=== PATIENT | female | born 1945 | race Caucasian/White ===

== ENCOUNTER 2021-03-10 04:46 | Emergency (ER) | payer MEDICARE, SELFPAY ==
--- NOTE | 2021-03-10 | ECG_ITS ---
Test Reason : CHEST PAIN Blood Pressure : / mmHG Vent. Rate : 069 BPM Atrial Rate : 069 BPM P-R Int : 178 ms QRS Dur : 080 ms QT Int : 408 ms P-R-T Axes : 024 -07 069 degrees QTc Int : 437 ms Normal sinus rhythm Inferior infarct , age undetermined Abnormal ECG No previous ECGs available Referred By: Farrah Vences Electronically Signed By:DIANE THOMPSON MD
--- NOTE | ~2021-03-10 | CT_ITS ---
EXAMINATION: CT ANGIOGRAM OF THE CHEST WITH AND WITHOUT CONTRAST (CT PULMONARY ANGIOGRAM FOR PE) CLINICAL INFORMATION: Reason for Exam dyspnea COMPARISON: None TECHNIQUE: Prior to contrast administration, noncontrast localization images were obtained. Subsequently, multidetector volumetric imaging was performed from the thoracic inlet to below the diaphragms following the administration of 80 mL Omnipaque 350 intravenous contrast. No contrast reaction reported Sagittal, coronal, and MIP oblique sagittal reformatted images were obtained on the CT workstation, uploaded to PACS, and reviewed. This CT examination was performed using dose optimization techniques as appropriate, variously including the following: *Automated exposure control *Adjustment of mA and/or kV according to patient size (this includes techniques or standardized protocols for targeted exams where dose is matched to indication/reason for exam; i.e. extremities or head) *Use of iterative reconstruction technique Total exam dose-length product 303 mGy-cm FINDINGS: QUALITY OF STUDY/CONTRAST BOLUS: Satisfactory. PULMONARY ARTERIES: No central or segmental pulmonary emboli. THORACIC AORTA: No aneurysm or dissection. LUNG: The lungs are well-expanded without acute pneumonic consolidation. There is minimal nonspecific groundglass attenuation in the dependent segments of both upper lobe posterior segments and both lower lobes and lower lobe. No pulmonary nodule or mass seen. Minimal atelectatic changes are seen in the right lower lobe. PLEURA: No pleural effusion or pneumothorax. MEDIASTINUM: The thyroid lobes are symmetric and normal. The central trachea and the bronchi widely patent. Heart size is normal caliber. No evidence of septal bowing or right heart strain. CHEST WALL/AXILLA: Small shotty nonspecific lymph nodes seen in the lateral thoracic space. No abnormal lymph nodes seen in the axilla. The chest wall appears unremarkable. OSSEOUS STRUCTURES: There is mild ventral spondylosis dorsal spine. No lytic or sclerotic process seen. UPPER ABDOMEN: Julys liver, spleen appears unremarkable. There is dependent radiopaque calculi in the gallbladder. No reflux of contrast into the hepatic veins to suggest elevated right heart pressures. CT/CT angio chest PE protocol IMPRESSION: No evidence of PE. No evidence of aortic dissection. No consolidation or mass. Minimal platelike atelectasis in right lower lobe. Nonspecific dependent atelectasis in this posterior segments of both upper and lower lobes. VTE: negative
--- NOTE | ~2021-03-10 | XR_ITS ---
EXAMINATION: XR CHEST CLINICAL INFORMATION: Shortness of breath COMPARISON: None TECHNIQUE: AP portable semiupright chest FINDINGS: Lung volumes are symmetric. No focal consolidation is seen. No evidence of pneumothorax, pleural effusion, or pulmonary edema. The cardiomediastinal contour is unremarkable. Partially visualized fusion hardware in the cervical spine. Degenerative changes are noted in the thoracic spine. XR/XR chest 1V IMPRESSION: No acute cardiopulmonary findings.
[2021-03-10 06:03] LABS: MANUAL DIFF FLAG NO
[2021-03-10 06:04] LABS: VBG Base Excess 6.4 mmol/L; VBG HCO3 31 mmol/L (22-26); VBG pCO2 44 mmHg; VBG pH 7.45 (7.32-7.43); VBG pO2 112 mmHg
[2021-03-10 06:18] LABS: Basophils Percent Auto 0.6 % (0-2); Eosinophils Absolute Auto 0.1 X10*3/uL (0.0-0.4); Eosinophils Percent Auto 2.1 % (0-4); Hematocrit 37.3 % (37-47); Hemoglobin 12.8 g/dl (12.0-16.0); Imm Gran Abs Auto 0.01 X10*3/uL (0.00-0.03); Imm Gran Pct Auto 0.2 % (0.0-0.4); Lymphocytes Absolute Auto 2.1 X10*3/uL (1.2-4.9); Lymphocytes Percent Auto 44.4 % (20-40); Mean Corpuscular HGB Conc 34.3 g/dl (31.0-35.0); Mean Corpuscular Volume 96.1 fL (80-98); Mean Platelet Volume 9.5 fL (9.4-12.3); Monocytes Absolute Auto 0.5 X10*3/uL (0.1-1.2); Monocytes Percent Auto 9.5 % (2-11); Neutrophils Absolute Auto 2.1 X10*3/uL (2.0-8.3); Neutrophils Percent Auto 43.2 % (45-73); Platelet Count 216 X10*3/uL (160-400); Red Blood Count 3.88 X10*6/uL (4.20-5.50); Red Cell Distribution Width 11.9 % (11.0-16.0); White Blood Count 4.8 X10*3/uL (4.8-10.8)
[2021-03-10 06:27] LABS: Lactic Acid 1.8 mmol/L (0.5-2.0)
[2021-03-10 06:32] LABS: Alanine Aminotransferase 15 U/L (0-31); Albumin Level 4.1 g/dL (3.5-5.0); Alkaline Phosphatase 69 U/L (39-117); Anion Gap 12 (12-20); Aspartate Amino Transferase 20 U/L (5-31); Bilirubin Total 0.2 mg/dL (0.0-1.0); Blood Urea Nitrogen 19 mg/dL (9-16); Carbon Dioxide 29 mmol/L (22-29); Chloride 103 mmol/L (96-108); Estimated Glomerular Filt Rate > 60; Glucose Random 120 mg/dL (60-115); Potassium 3.3 mmol/L (3.3-5.1); Sodium 141 mmol/L (135-145); Total Protein 6.4 g/dL (6.5-8.0)
[2021-03-10 06:39] LABS: B Type Natriuretic Peptide 18 pg/mL (<100); Troponin-I High Sensitivity < 3.5 ng/L (<3.5-17.0)
--- NOTE | 2021-03-10 06:52 | ED.SOB ---
HPI - SOB/Dyspnea General Chief Complaint: Dyspnea Time Seen by Provider: 03/10/21 06:40 Source: patient and EMS Mode of arrival: EMS Limitations: no limitations History of Present Illness HPI Narrative: PLEASE SEE INITIAL NOTE FROM DR. LARA DURING DOWN TIME Related Data Previous Rx's Medication Instructions Recorded prednisone 40 mg PO DAILY 4 Days #8 tab 03/10/21 Allergies Allergy/AdvReac Type Severity Reaction Status Date / Time morphine AdvReac Hypotension Verified 03/10/21 06:43 [facility] Social History Social History Alcohol intake: current Alcohol intake frequency: holidays/special occasions only Patient Tobacco Use Status: Never used Tobacco Use of substances other than those prescribed or required for medical reasons: No Advance Directives: No Advance Directives Information Provided: No Physical Exam Vital Signs: Vital Signs: Last Vital Signs Temp 98.3 F 03/10/21 07:20 Pulse 91 03/10/21 08:49 Resp 18 03/10/21 08:49 BP 163/67 H 03/10/21 08:49 Pulse Ox 95 03/10/21 08:49 Body Mass Index 34.0 Course Course Course Narrative: negative troponin at this time, CTA negative, had bronchospasm very brief after spouse made her laugh - will show her how to use INH with RT, start on low dose steroids likely minor COPD exacerbation MDM - SOB/Dyspnea MDM Narrative Medical decision making narrative: 75 YO female with hx of COPD, anxiety, HTN - c/o abrupt onset shortness of breath after walking to the bathroom - no prior episodes like this tried her inhaler and 0.5mg ativan, had back surgery 4 weeks ago at this time could be her COPD that she treated at home vs anxiety, no CP to suggest ACS but given her recent surgery CTA for PE ordered dispo per results and findings. Lab Data Result diagrams: 03/10/21 05:45 03/10/21 05:45 Labs: Lab Results 03/10/21 03/10/21 03/10/21 Range/Units 05:45 05:45 05:45 WBC 4.8 (4.8-10.8) X10*3/uL RBC 3.88 L (4.20-5.50) X10*6/uL Hgb 12.8 (12.0-16.0) g/dl Hct 37.3 (37-47) % MCV 96.1 (80-98) fL MCH 33.0 (27.0-33.0) pg MCHC 34.3 (31.0-35.0) g/dl RDW 11.9 (11.0-16.0) % Plt Count 216 (160-400) X10*3/uL MPV 9.5 (9.4-12.3) fL Immature Gran % (Auto) 0.2 (0.0-0.4) % Neut % (Auto) 43.2 L (45-73) % Lymph % (Auto) 44.4 H (20-40) % [place] % (Auto) 9.5 (2-11) % Eos % (Auto) 2.1 (0-4) % Baso % (Auto) 0.6 (0-2) % Lymph # (Auto) 2.1 (1.2-4.9) X10*3/uL [place] # (Auto) 0.5 (0.1-1.2) X10*3/uL Eos # (Auto) 0.1 (0.0-0.4) X10*3/uL Baso # (Auto) 0.0 (0.0-0.2) X10*3/uL Abs Immat Gran (auto) 0.01 (0.00-0.03) X10*3/uL Absolute Neuts (auto) 2.1 (2.0-8.3) X10*3/uL Absolute Nucleated RBC 0.000 (0.0-0.012) X10*3/uL Nucleated RBC % (auto) 0.0 (0.0-0.2) /100WBC VBG pH (7.32-7.43) VBG pCO2 mmHg VBG pO2 mmHg VBG HCO3 (22-26) mmol/L VBG O2 Saturation % VBG Base Excess mmol/L Sodium (135-145) mmol/L Potassium (3.3-5.1) mmol/L Chloride (96-108) mmol/L Carbon Dioxide (22-29) mmol/L Anion Gap (12-20) BUN (9-16) mg/dL Creatinine (0.5-1.4) mg/dL Estim Creat Clear Calc Estimated GFR Random Glucose (60-115) mg/dL Lactic Acid 1.8 (0.5-2.0) mmol/L Calcium (8.4-10.2) mg/dL Total Bilirubin (0.0-1.0) mg/dL AST (5-31) U/L ALT (0-31) U/L Alkaline Phosphatase (39-117) U/L Troponin I High Sens < 3.5 (<3.5-17.0) ng/L B-Natriuretic Peptide 18 (<100) pg/mL Total Protein (6.5-8.0) g/dL Albumin (3.5-5.0) g/dL 03/10/21 03/10/21 03/10/21 Range/Units 05:45 05:57 08:23 WBC (4.8-10.8) X10*3/uL RBC (4.20-5.50) X10*6/uL Hgb (12.0-16.0) g/dl Hct (37-47) % MCV (80-98) fL MCH (27.0-33.0) pg MCHC (31.0-35.0) g/dl RDW (11.0-16.0) % Plt Count (160-400) X10*3/uL MPV (9.4-12.3) fL Immature Gran % (Auto) (0.0-0.4) % Neut % (Auto) (45-73) % Lymph % (Auto) (20-40) % [place] % (Auto) (2-11) % Eos % (Auto) (0-4) % Baso % (Auto) (0-2) % Lymph # (Auto) (1.2-4.9) X10*3/uL [place] # (Auto) (0.1-1.2) X10*3/uL Eos # (Auto) (0.0-0.4) X10*3/uL Baso # (Auto) (0.0-0.2) X10*3/uL Abs Immat Gran (auto) (0.00-0.03) X10*3/uL Absolute Neuts (auto) (2.0-8.3) X10*3/uL Absolute Nucleated RBC (0.0-0.012) X10*3/uL Nucleated RBC % (auto) (0.0-0.2) /100WBC VBG pH 7.45 H (7.32-7.43) VBG pCO2 44 mmHg VBG pO2 112 mmHg VBG HCO3 31 H (22-26) mmol/L VBG O2 Saturation 99.0 % VBG Base Excess 6.4 mmol/L Sodium 141 (135-145) mmol/L Potassium 3.3 (3.3-5.1) mmol/L Chloride 103 (96-108) mmol/L Carbon Dioxide 29 (22-29) mmol/L Anion Gap 12 (12-20) BUN 19 H (9-16) mg/dL Creatinine 0.80 (0.5-1.4) mg/dL Estim Creat Clear Calc TNP Estimated GFR > 60 Random Glucose 120 H (60-115) mg/dL Lactic Acid (0.5-2.0) mmol/L Calcium 9.0 (8.4-10.2) mg/dL Total Bilirubin 0.2 (0.0-1.0) mg/dL AST 20 (5-31) U/L ALT 15 (0-31) U/L Alkaline Phosphatase 69 (39-117) U/L Troponin I High Sens < 3.5 (<3.5-17.0) ng/L B-Natriuretic Peptide (<100) pg/mL Total Protein 6.4 L (6.5-8.0) g/dL Albumin 4.1 (3.5-5.0) g/dL Discharge Plan Discharge Clinical Impression: Acute exacerbation of chronic obstructive airways disease Patient Disposition: Home, Self-Care Instructions: COPD (Chronic Obstructive Pulmonary Disease) (ED) Additional Instructions: return to ED for any worsening symptoms or concerns Prescriptions: New prednisone 20 mg tablet 40 mg PO DAILY 4 Days Qty: 8 RF: 0 Referrals: Carmen Black MD [Primary Care Provider] - 2 days (if not better)
--- NOTE | 2021-03-10 07:05 | PC.NURSE ---
Patient in CT
[2021-03-10 07:20] VITALS: BP 155/59; PULSE 87; RESP 16; TEMP 36.8; O2SAT 97; BMI 34.0
[2021-03-10] MEDS: iohexoL 350 MG/ML 100 ML INFUS..BTL IV (07:33)
[2021-03-10 08:49] VITALS: BP 163/67; PULSE 91; RESP 18; O2SAT 95
--- NOTE | 2021-03-10 08:50 | PC.NURSE ---
Patient is ambulatory to the bathroom and back using her cane without assistance. Pt states shortness of breath is much better than when she arrived.
[2021-03-10 08:59] LABS: Troponin-I High Sensitivity < 3.5 ng/L (<3.5-17.0)
--- NOTE | 2021-03-10 09:03 | PC.NURSE ---
Called to room by pt due to an episode of dyspnea after a coughing fit. Doctor is at bedside. Pt has mild wheezing auscultated. Sats 96%. Pt reassured by doctor and nurse. Pt encouraged to take slow deep breaths.
[2021-03-10] MEDS: Albuterol Sulfate 90 MCG 8 GM INHALER 2 PUFF INHALE (09:23)
[2021-03-10 09:29] VITALS: PULSE 91; O2SAT 96
== END 2021-03-10 09:58 | disposition home or self-care (01) ==
PROVIDERS: Emergency Provider Emergency Medicine; PCP Internal Medicine
DX: J44.1 Chronic obstructive pulmonary disease with (acute) exacerbation (principal); I10 Essential (primary) hypertension; Z79.899 Other long term (current) drug therapy
CPT/HCPCS: 36415; 71045; 71275; 80053; 83605; 83880; 84484; 85025; 87040; 87147; 87205; 93005; 94664; 99284; Q9967

== ENCOUNTER 2021-07-01 12:07 | Outpatient (REF) | payer MEDICARE, SELFPAY ==
--- NOTE | ~2021-07-01 | XR_ITS ---
EXAMINATION: XR BILATERAL HIPS WITH AP PELVIS CLINICAL INFORMATION: Osteoarthritis. COMPARISON: None TECHNIQUE: AP view the pelvis as well as AP and frog-leg lateral views of the right and left hip. FINDINGS: Severe bilateral hip joint space narrowing with mild acetabular bony remodeling. Subchondral sclerosis with prominent marginal osteophytes. No acute fracture or dislocation. Phleboliths within the pelvis. XR/XR hip BI w PEL1V IMPRESSION: Severe bilateral hip osteoarthritis.
== END 2021-07-01 12:08 | disposition home or self-care (01) ==
LOC: HO.HMGCX 12:07
PROVIDERS: PCP Internal Medicine; Visit Provider Internal Medicine
DX: Z13.89 Encounter for screening for other disorder (principal)
CPT/HCPCS: 73521

== ENCOUNTER 2024-06-10 13:41 | Emergency (ER) | payer MEDICARE, SELFPAY ==
--- NOTE | ~2024-06-10 | CT_ITS ---
EXAMINATION: CT HEAD WITHOUT CONTRAST CT FACIAL BONES WITHOUT CONTRAST CT CERVICAL SPINE WITHOUT CONTRAST CLINICAL INFORMATION: Fall. Head stripe. Pain. COMPARISON: None. TECHNIQUE: Imaging was performed from the skull base to vertex without intravenous administration of contrast. In addition, helical noncontrast CT imaging was acquired through the cervical spine and facial bones and source images were reviewed along with axial reconstructions and sagittal and coronal MPRs. [This CT examination was performed using dose optimization techniques as appropriate, variously including the following: *Automated exposure control *Adjustment of mA and/or kV according to patient size (this includes techniques or standardized protocols for targeted exams where dose is matched to indication/reason for exam; i.e. extremities or head) *Use of iterative reconstruction technique] DLP: 1219 mGy-cm FINDINGS: HEAD: No intracranial mass, hemorrhage, or midline shift is visualized. There is generalized global volume loss. There is mild prominence of the ventricles and the sulci . There is mild hypodensity of the periventricular white matter due to chronic small vessel ischemic disease. There are vascular calcifications of the internal carotid arteries bilaterally. No extra-axial collections are identified. FACIAL BONES: There is no evidence of an acute facial bone fracture. The paranasal sinuses are well aerated. No significant dental disease is visualized. The orbits are unremarkable in appearance. CERVICAL SPINE: There is no evidence of acute cervical spine fracture. Vertebral bodies remain normal in height. Status post fusion with anterior plate and screw C4-C6. Mild disc height narrowing and small vertebral anterior endplate spur C6-C7 and C7-T1 disc levels. Multilevel bilateral facet joint arthrosis which is most significant at the upper cervical spine on the right C2-C3, C3-C4 and C4-C5.. No pre- or paravertebral soft tissue abnormality is identified. Limited assessment of the lung apices is unremarkable. CT/CT cervical spine wo IV con IMPRESSION: 1. No acute intracranial process or discrete facial bone fracture. 2. No acute cervical spine fracture or traumatic subluxation. Electronically signed by: Yobani Aguilar MD 06/10/2024 03:46 PM EDT
[2024-06-10 13:44] VITALS: BP 137/73; PULSE 74; RESP 16; TEMP 36.7; O2SAT 98; BMI 31.9
--- NOTE | 2024-06-10 13:48 | ED.FALL ---
HPI - Fall General Chief Complaint: Fall Stated Complaint: fall facial inj Time Seen by Provider: 06/10/24 16:10 Related Data Previous Rx's ?Medication ?Instructions ?Recorded prednisone 20 mg tablet 40 mg (2 x 20 mg) PO DAILY 4 days 03/10/21 #8 tabs meloxicam 15 mg tablet 15 mg PO DAILY #14 tabs 07/01/21 Allergies Allergy/AdvReac Type Severity Reaction Status Date / Time morphine AdvReac Hypotension Verified 06/10/24 13:48 [facility] Social History Social History Alcohol intake: current Alcohol intake frequency: holidays/special occasions only Patient Tobacco Use Status: Never used Tobacco Advance Directives: No Advance Directives Information Provided: No Do you have a plan to hurt others: No Plan Physical Exam Vital Signs: Vital Signs: Last Vital Signs Temp 98.1 F 06/10/24 13:44 Pulse 74 06/10/24 13:44 Resp 16 06/10/24 13:44 BP 137/73 06/10/24 13:44 Pulse Ox 98 06/10/24 13:44 O2 Del Method Room Air 06/10/24 13:44 BMI result Body Mass Index 31.9 Course Course Course Narrative: This is an RME: Additional HPI, ROS, PE not included below will be deferred to primary provider. RME assessment and note performed by: Sofi Sanabria PA-C This is a 78-year-old female who presents emergency department with complaints of nasal bone pain, headache status post mechanical fall which occurred today. Patient states that she tripped and fell forward landing on her face. she states that she had a bloody nose after the incident. She is neurologically intact Plan: CT head, facial bones, neck Reevaluation(s) Reevaluation #1: Patient left without completing treatment. Discharge Plan Discharge Clinical Impression: Fall Patient Disposition: Left W/O Completing Treatment Prescriptions: No Action prednisone 20 mg tablet 40 mg PO DAILY 4 Days Qty: 8 0RF meloxicam 15 mg tablet 15 mg PO DAILY Qty: 14 0RF Discharge Date/Time: 06/10/24 18:56
== END 2024-06-10 18:56 | disposition left against medical advice (07) ==
LOC: HO.ED 18:47
PROVIDERS: Emergency Provider Emergency Medicine; PCP Internal Medicine
DX: S09.93XA Unspecified injury of face, initial encounter (principal); S19.9XXA Unspecified injury of neck, initial encounter; R51.9 Headache, unspecified; M54.2 Cervicalgia; W01.10XA Fall on same level from slipping, tripping and stumbling with subsequent striking against unspecified object, initial encounter; Y93.01 Activity, walking, marching and hiking; Y92.89 Other specified places as the place of occurrence of the external cause; Y99.8 Other external cause status
CPT/HCPCS: 70450; 70486; 72125; 99281; 99284

== ENCOUNTER 2024-10-04 14:29 | Outpatient (AMB) | payer MEDICARE, SELFPAY ==
--- NOTE | 2024-10-04 14:31 | AM.OFFWIN_ITS ---
Intake Vital Signs 10/04/24 14:32 Height 5 ft 3 in Weight 166 lb BMI 29.4 BP 102/68 Blood Pressure Location Lt brachial Position Sitting Pulse 77 Pulse Source Pulse Oximeter Temp 98.2 F Temp Source Oral Pulse Oximetry (%) 96 Oxygen Delivery Method Room Air Intake Visit Reasons: SHUTTLE HAND-copd, sob, mucus Intake Note: Pt is here today c/o SOB, coughing up mucus and has a hx of COPD Patient Tobacco Use Status: Never used Tobacco Allergies morphine Adverse Reaction (Verified 10/04/24 14:33) Hypotension HPI HPI Comments History of Present Illness Details History The patient is a 78-year-old female presenting with acute episodes of choking and difficulty breathing. She experienced two episodes of unexplained choking on nothing this morning while preparing breakfast, leading to significant breathlessness. She has a history of Chronic Obstructive Pulmonary Disease (COPD), controlled with daily Trelegy and an emergency albuterol inhaler. The patient's chronic cough remains unchanged in pattern or intensity. During the choking episodes, she noted significant difficulty in regaining breath and produced thick, white, stringy mucus. 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 Her shortness of breath is aggravated by exertion, necessitating preemptive use of albuterol before physical activities around her house. No changes in her COPD-related cough are reported, and she denies any fever, upper respiratory symptoms, or gastrointestinal issues. Physical Exam General: Cooperative, healthy appearing, comfortable and no acute distress Orientation/consciousness: Patient oriented x3 Limitations: No limitations Head: Normal to inspection Ears: Hearing grossly normal bilaterally, external ears normal and TM's normal bilaterally Nose: Normal external nose present, Normal nares present and No nasal discharge present Face and sinus: Normal facial exam and Yes sinuses nontender Mouth: Normal oral and palatal mucosa present and moist mucous membranes Throat: Yes tonsils normal, Yes uvula midline. Posterior oropharynx erythema Eyes: Appearance normal, both eyes and all related structures Neck: Normal visual inspection Respiratory: Clear to auscultation bilaterally. Normal respiratory effort, able to speak in complete sentences, no respiratory distress, not tachypneic, no tripod positioning and no use of accessory muscles Cardiovascular: Regular rate and rhythm. Normal S1 and S2 Skin: No rashes or lesions noted Neuro: Patient oriented x3 Extremities: Normal to inspection and Yes no clubbing, cyanosis or edema PFSH Social History Alcohol intake: current Alcohol intake frequency: holidays/special occasions only Patient Tobacco Use Status: Never used Tobacco Review of Systems Const All systems reviewed & are unremarkable except as noted in HPI and below Physical Exam Vital Signs: Last Vital Signs Temp 98.2 F 10/04/24 14:32 Pulse 77 10/04/24 14:32 BP 102/68 10/04/24 14:32 Pulse Ox 96 10/04/24 14:32 Oxygen Delivery Method Room Air 10/04/24 14:32 BMI result Body Mass Index 29.4 Assessment & Plan Assessment & Plan (1) COPD exacerbation: Code(s): J44.1 - Chronic obstructive pulmonary disease with (acute) exacerbation Plan: Plan The patient will be started on a five-day course of prednisone at 20 mg daily to mitigate bronchial irritation potentially causing choking episodes and dyspnea. Diagnostic testing for influenza, COVID-19, and RSV has been performed, with results expected by the following morning to exclude viral infection as a cause. A chest X-ray is also scheduled to rule out pneumonia and confirm the absence of any undetected chest abnormalities. Vitals stable and auscultation findings were unremarkable, suggesting no immediate signs of infection, but given her history of COPD and age, caution is warranted. The patient was informed about possible side effects from prednisone, such as increased energy. She was also advised to seek immediate medical attention if her condition worsens. Patient was informed and verbally consented to the use of an ambient scribe for clinic note documentation during this visit Orders: Orders XR chest 2V Today R05.9 - Cough, unspecified SARS-CoV2/FLU/RSV Today R09.89 - Other specified symptoms and signs involving the circulatory and respiratory systems Medications: New prednisone 20 mg PO QAM 5 tabs 0RF Coding Level of Care Code New Pt Level 4 (27612) Diagnoses COPD exacerbation J44.1
[2024-10-04 14:32] VITALS: BP 102/68; PULSE 77; TEMP 36.8; O2SAT 96; BMI 29.4
--- OUTSIDE RECORDS SUMMARY | 2024-10-04 15:52 | XMS_ITS | Continuity of Care Document ---
Author Organization [place] [facility] Gildardo Manzano AONE [place] Address [address] [facility] [address] [place] [address] Care Team Providers Care Factory Worker Name Role Phone MEE VERAS Primary Care Provider MEE Fuller Referring Provider [phone] MEE VERAS Primary Care Provider Assessment Encounter Date Assessment Date Assessment LastModified by Organization Details LastModified Time 08/01/2024 08/01/2024 HPI : ? Patient is here for 1 year follow-up for left total hip replacement.? ? Patient reports good pain relief in the hip and satisfactory caodaism of function in terms of activities of daily living. Their condition is improved relative to their pre-operative condition. She is thrilled with the results of her hip replacement surgery. She has not encountered any problems since her last office visit. The hip is pain-free and high functioning. Physical Exam : Patient is well nourished, well-developed, in no acute distress, with appropriate mood and affect. The patient is oriented to time, place, and person. There is no inguinal adenopathy. The operative limb is well-perfused, with well healed skin incision. The patient demonstrates good hip motion, stability, and strength. There is no pain with ROM Muscle strength is normal. Distal NVMS checks are intact. X-Ray: 4 view x-ray study of left hip obtained during today's office encounter does not show any signs of implant related issues including loosening, malposition, instability, periprosthetic fracture, periosteal reaction or infection. Assessment/Plan : This patient is functioning well after total hip arthroplasty. Continue to work on hip conditioning exercises. Smpn-loh-uwtaego medications as needed. The patient understands that ultimate failure may occur due to mechanical wear, loosening or breakage. Follow-up at five year post-op is recommended to assess for the possibility of failure. Follow up sooner with any problems. At least 25 minutes were spent reviewing previous charting and radiographs, obtaining history and physical exam, and reviewing treatment plan. This patient was seen and evaluated by Anitra Yip MS, AMANDEEP in indirect conjunction with documenting/super vising provider Jason Lund MD. He agrees with history, physical examination, tests/diagnostic imaging, and treatment plan. [email or web address] Not available 08/01/2024 11:35:11 Plan of Treatment Reminders Order Date Submit Date Provider Last Modified By Organization Details Last Modified Time Details Appointments None record ed. Lab None record ed. Referral None record ed. Procedures None record ed. Surgeries None record ed. Imaging XR, hip, unilat eral, 2 or 3 view 024 08/01/20 24 [email or web address], [address], [place], [address], 4 11:34:35 Medication Orders None record ed. Patient TargetsNo targets recorded. Patient InstructionsNo instructions recorded. Reason for Referral None Reported. Problems Name Problem SNOMED Code Status Onset Date Resolution Date Notes Provider Name and Address Organization Details Recorded Time Osteoarthri tis of left hip joint 8180430759152 08 Active 2022 Jason Lund MD [address], [place], [address], [place] [facility], [facility] 3 13:54:38 Arthritis of hip 86109362 Active 2022 Jason Lund MD [address], [place], [address], [place] [facility], P 3 13:56:32 Candidiasis of skin 40536836 Active 2022 ANITRA FRENCH PA-C [address], [place], [address], [place] [facility], P 3 10:43:09 History of total replacement of left hip joint 6040600271418 105 Active 2022 ANITRA YIP PA-C [address], [facility] [place], [address], [facility], [facility] 3 10:59:07 Problem Notes None recorded. Procedures Surgical History Date Name Laterality Status Provider Name and Address Organization Details Recorded Time delivery completed [facility], [facility] 05/12/2023 13:47:42 procedure on ankle completed [facility], P 05/12/2023 13:47:49 procedure on neck completed [facility], P 05/12/2023 13:47:59 operation on lumbar spine completed [facility], [facility] 05/12/2023 13:48:12 Imaging Results None recorded. Procedure Notes None recorded. Medical Equipment None Reported. Allergies Allergen ID Allergen Name Allergen Category Reaction Reaction Severity Criticality Documentation Date Start Date Code Code System Note Provider Name and Address Organization Details Recorded Time 420 Aleve medicatio n Not available Not available Not available 12/16/2022 72105 1 RxNorm Paulina márquez, [facility], P 3 14:01:41 421 morphine medicatio n other Not available Not available 12/16/2022 7052 RxNorm Hypot entio n Paulina Johncrow márquez, [facility], P 3 14:02:35 Medications Name Sig Start Date Stop Date Status Note LastModified by Organization Details LastModified Time amoxicillin 500 mg capsule TAKE 4 CAPSULES BY MOUTH 1 HOUR BEFORE DENTAL PROCEDURE active Not Available Not Available No t Available fluconazole 100 mg tablet TAKE 1 TABLET BY MOUTH DAILY 08/03 completed Not Available Not Available Not Available prednisone 10 mg tablet TAKE 3 TABLETS BY MOUTH TWICE DAILY X3 DAYS THEN TAKE 2 TABLETS TWICE DAILY X3 DAYS THEN 1 TABLET DAILY X5 DAYS active Not Available Not Available No t Available phenazopyri dine 200 mg tablet TAKE 1 TABLET BY MOUTH THREE TIMES DAILY 08/03 completed Not Available Not Available Not Available ondansetron HCl 4 mg tablet 08/03 completed Not Available Not Available Not Available prednisone 20 mg tablet TAKE 3 TABLETS BY MOUTH DAILY FOR 3 DAYS THEN TAKE 2 TABLETS BY MOUTH DAILY FOR 3 DAYS THEN TAKE 1 TABLET BY MOUTH DAILY FOR 3 DAYS active Not Available Not Available No t Available sulfamethox azole 800 mg-trimetho prim 160 mg tablet TAKE 1 TABLET BY MOUTH TWICE DAILY 08/03 completed Not Available Not Available Not Available meloxicam 7.5 mg tablet 08/03 completed Not Available Not Available Not Available lorazepam 0.5 mg tablet TAKE 1 TABLET BY MOUTH AT BEDTIME NEEDED FOR ANXIETY 08/03 completed Not Available Not Available Not Available methocarbam ol 750 mg tablet 08/03 completed Not Available Not Available Not Available cephalexin 500 mg capsule TAKE 1 CAPSULE BY MOUTH EVERY 8 HOURS 11/02 completed Not Available Not Available Not Available paroxetine 20 mg tablet active Not Available Not Available Not Available pantoprazol e 40 mg tablet,deepa yed release TAKE 1 TABLET BY MOUTH TWICE DAILY active Not Available Not Available No t Available simvastatin 20 mg tablet active Not Available Not Available Not Available clotrimazol e-betametha sone 1 %-0.05 % topical cream active Not Available Not Available Not Available hydrocortis one 2.5 % topical cream APPLY TOPICALLY TO THE AFFECTED AREA TWICE DAILY 08/03 completed Not Available Not Available Not Available hydrochloro thiazide 25 mg tablet active Not Available Not Available No t Available cefuroxime axetil 500 mg tablet active Not Available Not Available No t Available albuterol sulfate HFA 90 mcg/actuati on aerosol inhaler active Not Available Not Available Not Available oxybutynin chloride 5 mg tablet TAKE 1 TABLET BY MOUTH AT BEDTIME active Not Available Not Available No t Available fluticasone propionate 50 mcg/actuati on nasal spray,suspe nsion active Not Available Not Available Not Available clotrimazol e 1 % topical cream APPLY TOPICALLY TO THE AFFECTED AREA AND SURROUNDI NG AREAS OF SKIN TWICE DAILY active Not Available Not Available No t Available loratadine 10 mg tablet TAKE 1 TABLET BY MOUTH EVERY DAY active Not Available Not Available No t Available amoxicillin 875 mg-potassiu m clavulanate 125 mg tablet TAKE 1 TABLET BY MOUTH TWICE DAILY 08/03 completed Not Available Not Available Not Available oxycodone 5 mg tablet 08/03 completed Not Available Not Available Not Available cyclobenzap rine 5 mg tablet TAKE 1 TABLET BY MOUTH AT BEDTIME NEEDED FOR MUSCLE PAIN 08/03 completed Not Available Not Available Not Available nitrofurant oin monohydrate /macrocryst als 100 mg capsule TAKE 1 CAPSULE BY MOUTH TWICE DAILY 08/03 completed Not Available Not Available Not Available albuterol active Not Available Not Cecy ilable Not Available Flonase active Not Available Not Avail able Not Available diclofenac 1 % topical gel APPLY TOPICALLY FOUR TIMES DAILY NEEDED FOR PAIN. APPLY OVER RIGHT SHOULDER/ BACK REGION 08/03 completed Not Available Not Available Not Available Multi Vitamin active Not Available Not Available Not Available Trelegy Ellipta 100 mcg-62.5 mcg-25 mcg powder for inhalation INHALE 1 PUFF INTO THE LUNGS DAILY active Not Available Not Available No t Available Paxlovid 300 mg (150 mg x 2)-100 mg tablets in a dose pack TAKE 3 TABLETS BY MOUTH TWICE DAILY FOR 5 DAYS ACCORDING TO PACKAGE INSTRUCTI ONS active Not Available Not Available No t Available Vitals None Recorded Social History Question Answer Notes LastModified by Organizat ion Details LastModified Time Tobacco Smoking Status Never Smoker Crispin márquez, [place] [facility], 05/12/2023 13:49:09 What Is Your Level Of Alcohol Consumption? Occasional 3 Times A Year [email or web address] Information not available 05/12/2023 Do You Use Any Illicit Or Recreational Drugs? No [email or web address] Information not available 05/12/2023 Do You Or Have You Ever Used Any Other Forms Of Tobacco Or Nicotine? No [email or web address] Information not available 05/12/2023 Sex: Unknown Functional Status None recorded. Mental Status None recorded. Family History Relationship Description Onset Age of this Age Resolved Age Notes LastModified by Organization Details LastModified Time Sister Arthritis [email or web address] Not availab le 12/16/2022 14:04:33 Sister Family history of malignant neoplasm [email or web address] Not available 2022 14:05:28 Mother Diabetes mellitus [email or web address] Not available 2022 14:04:53 Mother Family history of malignant neoplasm [email or web address] Not available 2022 14:05:21 Mother Hypertensive disorder [email or web address] Not available 2022 14:05:49 Father Family history of malignant neoplasm [email or web address] Not available 2022 14:05:16 Medical History Condition Response Gout Y COPD Y Asthma Y Reflux/GERD Y Hypertension Y Gynecological HistoryNo gynecological history recorded. Obstetrics History GPAL:G 0 P 0 0 0 0 Past Encounters Encounter ID Performer Location Encounter Start Date Encounter Closed Date Diagnosis/Indication Diagnosis SNOMED-CT Code Diagnosis ICD10 Code Diagnosis Note [id number] MD SKY Dee [facility] [address] [facility] [address] [place] [address] 08/01/2024 11:07:42 08/01/2024 11:34:34 History of total replacement of left hip joint [id number] Z96.642 Health Concerns Section Related Observation LastModified by Organization Detai ls LastModified Time None Recorded Concern Status LastModified by Organization Details LastModified Time None Recorded Payers Encounter Date Sequence Insurance Name Policy Number Policy Alfaro Covered Member ID Alfaro Member ID Guarantor Name 08/01/2024 1 [facility] (MEDICARE REPLACEMENT/A DVANTAGE - PPO) [id number] Ros Cordova [id number] Ros Cordova OBGyn Episode No OBEpisode recorded.
--- OUTSIDE RECORDS SUMMARY | 2024-10-04 15:52 | XMS_ITS ---
Author Name [facility] Organization Unknown History of Medication Use Medication Directions Dispensed Refills Start Date End Date Status clotrimazole-betamethaso ne 1 %-0.05 % topical cream 3 active oxybutynin chloride 5 mg tablet TAKE 1 TABLET BY MOUTH AT BEDTIME 3 active methocarbamol 750 mg tablet 3 completed cyclobenzaprine 5 mg tablet TAKE 1 TABLET BY MOUTH AT BEDTIME NEEDED FOR MUSCLE PAIN 3 completed Trelegy Ellipta 100 mcg-62.5 mcg-25 mcg powder for inhalation 3 active paroxetine 20 mg tablet 0 3 active simvastatin 20 mg tablet 3 active ondansetron HCl 4 mg tablet 3 completed amoxicillin 875 mg-potassium clavulanate 125 mg tablet TAKE 1 TABLET BY MOUTH TWICE DAILY 3 completed sulfamethoxazole 800 mg-trimethoprim 160 mg tablet TAKE 1 TABLET BY MOUTH TWICE DAILY 3 completed paroxetine 20 mg tablet 0 3 active simvastatin 20 mg tablet 3 active prednisone 10 mg tablet TAKE 3 TABLETS BY MOUTH TWICE DAILY X3 DAYS THEN TAKE 2 TABLETS TWICE DAILY X3 DAYS THEN 1 TABLET DAILY X5 DAYS 4 active cephalexin 500 mg capsule TAKE 1 CAPSULE BY MOUTH EVERY 8 HOURS 3 completed oxycodone 5 mg tablet 3 completed clotrimazole 1 % topical cream APPLY TOPICALLY TO THE AFFECTED AREA AND SURROUNDING AREAS OF SKIN TWICE DAILY 3 active lorazepam 0.5 mg tablet TAKE 1 TABLET BY MOUTH AT BEDTIME NEEDED FOR ANXIETY 3 completed diclofenac 1 % topical gel APPLY TOPICALLY FOUR TIMES DAILY NEEDED FOR PAIN. APPLY OVER RIGHT SHOULDER/BACK REGION 3 completed meloxicam 7.5 mg tablet 1 3 completed hydrochlorothiazide 25 mg tablet 3 active amoxicillin 500 mg capsule TAKE 4 CAPSULES BY MOUTH 1 TIME AN HOUR BEFORE DENTAL PROCEDURE 3 completed phenazopyridine 200 mg tablet TAKE 1 TABLET BY MOUTH THREE TIMES DAILY 3 completed hydrocortisone 2.5 % topical cream APPLY TOPICALLY TO THE AFFECTED AREA TWICE DAILY 3 completed cefuroxime axetil 500 mg tablet 4 active nitrofurantoin monohydrate/macrocrystal s 100 mg capsule TAKE 1 CAPSULE BY MOUTH TWICE DAILY 3 completed fluconazole 100 mg tablet TAKE 1 TABLET BY MOUTH DAILY 3 completed Keflex 500 mg capsule Take 1 capsule every 8 hours by oral route. 3 active Multi Vitamin 3 active loratadine 10 mg tablet TAKE 1 TABLET BY MOUTH EVERY DAY 3 completed pantoprazole 40 mg tablet,delayed release TAKE 1 TABLET BY MOUTH TWICE DAILY 3 active Allergies Allergen Reaction Severity Comment Documented Date Source Statu s MORPHINE other [facility] [place]VE [facility] Problems Problem Status Onset Date Problem Type Date of Resoluti on Source Arthritis of hip active 2023-05-12 ProblemAct E [facility] History of total replacement of left hip joint active 2023-08-07 ProblemAct [facility] Osteoarthritis of left hip joint active 2023-05-12 ProblemAct [facility] Candidiasis of skin active 2023-08-03 ProblemAct [facility]
== END 2024-10-04 15:53 | disposition home or self-care (01) ==
PROVIDERS: PCP Internal Medicine; Visit Provider Physician Assistant
DX: J44.1 Chronic obstructive pulmonary disease with (acute) exacerbation (principal)

== ENCOUNTER 2024-10-04 14:29 | Outpatient (REF) | payer MEDICARE, SELFPAY | END 2024-10-04 14:30 | disposition home or self-care (01) | LOC: HO.LAB 14:29 | PROVIDERS: PCP Internal Medicine | DX: R05.9 Cough, unspecified (principal) | CPT/HCPCS: 99202 ==

== ENCOUNTER 2024-10-04 15:13 | Outpatient (REF) | payer MEDICARE, SELFPAY ==
--- NOTE | ~2024-10-04 | XR_ITS ---
EXAMINATION: XR CHEST CLINICAL INFORMATION: R05.9 - Cough, unspecified COMPARISON: Chest x-ray 03/10/2021 TECHNIQUE: 2 views of the chest were obtained. FINDINGS: The lungs are well-expanded and clear. The heart size and pulmonary vascularity is normal. There is mild spondylosis dorsal spine. No aggressive lytic or sclerotic process seen. XR/XR chest 2V IMPRESSION: Unremarkable chest examination. Electronically signed by: Rommel Carranza MD 10/07/2024 07:26 AM EST
--- OUTSIDE RECORDS SUMMARY | 2024-10-04 16:24 | XMS_ITS | Data Portability ---
Author Organization [place] [facility] Gildardo Manzano AONE [place] Address [address] [place] [address] Care Team Providers Care Baby Sitter Name Role Phone MEE EVRAS Primary Care Provider [phone] Assessment Encounter Date Assessment Date Assessment LastModified by Organization Details LastModified Time 08/07/2023 08/07/2023 HPI : Patient is here for a 2 week follow-up from a left NETO. Patient denies fevers, chest pain and shortness of breath. Patient has been compliant with anticoagulant protocol. Ros was seen for a wound check last week. She was recognized as having an area of dehiscence and there were concerns about the possibility of infection. She reports that she has been compliant with our recommended oral and topical antibacterial and antifungal medications. She states that she feels that the wound is much improved. She denies feeling ill in any way with fevers chills sweats or malaise. She is not having any problems with the hip joint itself and states that she is having a smoother recovery than she did on the opposite side. She is using only Tylenol as needed for pain. She is compliant with her regimen of aspirin for DVT prophylaxis. Physical Exam : Patient is well nourished, well- developed, in no acute distress, with appropriate mood and affect. The patient demonstrates good hip motion and strength. The incision is clean and dry with no signs of infection. Negative calf tenderness, negative Christine's sign. Inspection of her wound shows a byrne velasco sized area of dehiscence at the most cephalad portion of her wound. There is some inflammation of the skin and mild exudate along the inguinal crease. There is no active drainage nor is there any fluctuance. There is no inguinal adenopathy. She is, in general, nonseptic appearing. Assessment/Plan : The patient is doing well 2 weeks from total hip arthroplasty. Patient will continue and complete 28 day anticoagulation therapy and continue physical therapy. She has a small area of wound dehiscence which is gradually healing. She will continue and complete her course of oral antibiotic. Recommended follow-up in 2 weeks for recheck. This patient was seen and evaluated by Anitra Alexandre MS, AMANDEEP in indirect conjunction with [facility] provider Jason Lund MD. He agrees with history, physical examination, tests/diagnostic imaging, and treatment plan. Not available 08/21/2023 13:37:20 08/21/2023 08/21/2023 77-year-old fema le 3+ weeks status post left-sided total hip arthroplasty. She has a tiny area of wound dehiscence but it is showing signs of improvement relative to her last exam. There is no indication of infection. She is recovering nicely. She is provided a physical therapy order today. Follow-up with her surgeon in 1 month. She will reach us sooner with any problems. Not available 08/21/2023 13:42:36 09/08/2023 09/08/2023 HPI : Patient is here for a 6 week follow-up from a left total hip replacement. She reports she is feeling great. She has no pain. She has good function. She has some numbness laterally. Her strength is still improving. Physical Exam : Patient is well nourished, well- developed, in no acute distress, with appropriate mood and affect. The patient is AAOx3. The patient demonstrates good hip motion and strength. The incision is well healing. Small scabs at the proximal crease aspect of the incision. Assessment/Plan : The patient is functioning well 6 weeks from total hip arthroplasty. Continue physical therapy as needed. Return for follow-up in 2 months with x-rays at that time. [email or web address] Not available 09/08/2023 11:09:19 11/02/2023 11/02/2023 HPI : ? Patient is here for 3 month(s) follow-up for LEFT total hip replacement.? ? Patient reports good pain relief in the hip and satisfactory mu-ism of function in terms of activities of daily living. Their condition is improved relative to their pre-operative condition. She is pain-free and is very pleased with her high functioning left hip replacement. She has encountered no problems. She has no specific questions. Physical Exam : Patient is well nourished, [...] Continue to work on hip conditioning exercises. Vdcn-twh-gburfsl medications as needed. The patient understands that ultimate failure may occur due to mechanical wear, loosening or breakage. Follow-up at one year post-op is recommended to assess for the possibility of failure. Follow up sooner with any problems. A total of 27 minutes were spent reviewing previous charting, obtaining history and physical exam, and reviewing treatment plan. This patient was seen and evaluated by Anitra Alexandre MS, PAAbram in indirect conjunction with documenting/superv ising provider Jason Lund MD. He agrees with history, physical examination, tests/diagnostic imaging, and treatment plan. Not available 11/02/2023 12:07:40 08/01/2024 08/01/2024 HPI : ? Patient is here for 1 year follow-up for left total hip replacement.? ? Patient reports good pain relief in the hip and satisfactory mu-ism of function in terms of activities of [...] Continue to work on hip conditioning exercises. [id number]-jisydhn medications as needed. The patient understands that [...] patient was seen and evaluated by Anitra Alexandre MS, PA-C in indirect conjunction with documenting/superv ising provider Jason Lund MD. He agrees with history, physical examination, tests/diagnostic imaging, and treatment plan. Not available 08/01/2024 11:35:11 Plan of Treatment Reminders Order Date Submit Date Provider Last Modified By Organization Details Last Modified Time Details Appointments None record ed. Lab None record ed. Referral None record ed. Procedures None record ed. Surgeries None record ed. Imaging XR, hip, unilat eral, 2 or 3 view 024 11/02/19 24 [email or web address] [facility], [address], [place], [address], 4 12:08:14 XR, hip, unilat eral, 2 or 3 view 024 08/01/20 24 [email or web address] [facility], [address], [place], [address], 4 11:34:35 Medication Orders None record ed. Patient TargetsNo targets recorded. Patient Instructions Encounter Date Encounter Id Patient Instructions Last Modified By Organization Details Last Modified Time 08/21/2023 [id number] physical therapy * - Diagnosis: Status post left-sided total hip arthroplasty Evaluate and treat as indicated to reduce pain and to improve mobility, range of motion, and function. Please teach a home exercise plan and incorporate PT into patient's exercise routine. 2-3 sessions weekly for 6 weeks. [email or web address] Not available 08/28/2023 08:17:27 Reason for Referral None Reported. Problems Name Problem SNOMED Code Status Onset Date Resolution Date Notes Provider Name and Address Organization Details Recorded Time Osteoarthri tis of left hip joint 2622820758295 08 Active 2022 Jason Lund MD [address], [place], [address], [place] [facility] 3 13:54:38 Arthritis of hip 62157604 Active 2022 Jason Lund MD [address], [place], [address], [place] [facility], [facility] 3 13:56:32 Candidiasis of skin 24669184 Active 2022 ANITRA FRENCH PA-C [address], [place], [address], [place] [facility], [facility] 3 10:43:09 History of total replacement of left hip joint 3631660081791 105 Active 2022 ANITRA ALEXANDRE PA-C [address], [place], [address], [place] [facility], [facility] 3 10:59:07 Problem Notes None recorded. Procedures Surgical History Date Name Laterality Status Provider Name and Address Organization Details Recorded Time delivery completed [facility] 05/12/2023 13:47:42 procedure on ankle completed [facility] 05/12/2023 13:47:49 procedure on neck completed [facility], P 05/12/2023 13:47:59 operation on lumbar spine completed [facility] 05/12/2023 13:48:12 Imaging Results None recorded. Procedure Notes None recorded. Medical Equipment None Reported. Allergies Allergen ID Allergen Name Allergen Category Reaction Reaction Severity Criticality Documentation Date Start Date Code Code System Note Provider Name and Address Organization Details Recorded Time 420 Aleve medicatio n Not available Not available Not available 12/16/2022 41667 1 RxNorm Paulina márquez, [place] - [facility], [facility] 3 14:01:41 421 morphine medicatio n other Not available Not available 12/16/2022 7052 RxNorm Hypot entio n Paulina Rodriguez null, [place] [facility], [facility] 3 14:02:35 Medications Name Sig Start [...] Available Not Available No t Available Vitals Date Recorded Body height Body mass index (BMI) Body weight Provider Name and Address Organization Details Last Updated DateTime 08/07/2023 157.48 cm 32 kg/m2 [address].[address] [place] [facility] 08/07/2023 10:36:31 Date Recorded Body height Body mass index (BMI) Body weight Provider Name and Address Organization Details Last Updated DateTime 08/21/2023 157.48 cm 32 kg/m2 25632.[address] [place] [facility] 08/21/2023 13:24:41 Date Recorded Body height Provider Name an d Address Organization Details Last Updated DateTime 09/08/2023 157.48 cm Paulina Rodriguez [facility] 09/08/2023 10:59:21 Social History Question Answer Notes LastModified by Organizat ion Details LastModified Time Tobacco Smoking Status Never Smoker Crispin Henderson null, [place] [facility] 05/12/2023 13:49:09 What Is Your Level Of Alcohol Consumption? Occasional 3 Times A Year [email or web address] Information not available 05/12/2023 Do You Use Any Illicit Or Recreational Drugs? No [email or web address] Information not available 05/12/2023 Do You Or Have You Ever Used Any Other Forms Of Tobacco Or Nicotine? No [email or web address] Information not available 05/12/2023 Sex: Unknown Functional [...] 14:05:16 Medical History Condition Response Gout Y Reflux/GERD Y Hypertension Y COPD Y Asthma Y Gynecological HistoryNo gynecological history recorded. Obstetrics History GPAL:G 0 P 0 0 0 0 Past Encounters Encounter ID Performer Location Encounter Start Date Encounter Closed Date Diagnosis/Indication Diagnosis SNOMED-CT Code Diagnosis ICD10 Code [id number] MD [address] [address] 12/16/2022 13:50:58 12/16/2022 14:11:28 History of right hip replacement 3019970479 377319 Z96.641 Aftercare 309668875 Z47. 1 [id number] [address] 05/12/2023 13:22:39 05/12/2023 14:03:28 Pain of left hip joint 3253195136 58149 M25.552 Osteoarthr itis of left hip joint 3814618236 39686 M16.12 Arthritis of hip 8438166 6 M13.859 [id number] MD SKY Dee [address] [address] 08/03/2023 10:03:22 08/03/2023 10:44:54 Candidiasis of skin 04291572 B37.2 [id number] MD [address] [address] 08/21/2023 13:17:13 08/21/2023 13:42:06 History of total replacement of left hip joint 4253028582 972523 Z96.[id number] [address] 08/07/2023 10:34:57 08/07/2023 10:59:45 History of total replacement of left hip joint 6337118820 127988 Z96.642 [id number] MD SKY Dee [address] [address] 09/08/2023 10:19:59 09/08/2023 11:13:37 History of total replacement of left hip joint 4423951406 052110 Z96.642 Aftercare 488015743 Z47. 1 [id number] MD SKY Dee [facility] doreen [address] [facility] [address] [place] [address] 11/02/2023 11:41:05 11/02/2023 12:08:14 History of total replacement of left hip joint 8215051965 842233 Z96.642 [id number] MD SKY Dee [facility] [address] [facility] [address] [place] [address] 08/01/2024 11:07:42 08/01/2024 11:34:34 History of total replacement of left hip joint 1589938673 828957 Z96.642 Health Concerns Section Related Observation LastModified by Organization Detai ls LastModified Time None Recorded Concern Status LastModified by Organization Details LastModified Time None Recorded Advance Directives Directive None Recorded Payers Encounter Date Sequence Insurance Name Policy Number Policy Alfaro Covered Member ID Alfaro Member ID Guarantor Name 08/07/2023 1 [facility] (MEDICARE REPLACEMENT/A DVANTAGE - PPO) [id number] Ros Maru Cordova [id number] Ros Cordova 08/21/2023 1 [facility] (MEDICARE REPLACEMENT/A DVANTAGE - PPO) [id number] Ros Maru Cordova [id number] Ros Gilmoreum 09/08/2023 1 [facility] (MEDICARE REPLACEMENT/A DVANTAGE - PPO) [id number] Ros Mahoney Deirdreum [id number] Ros Gilmoreum 11/02/2023 1 [facility] (MEDICARE REPLACEMENT/A DVANTAGE - PPO) [id number] Ros Maru Cordova [id number] Ros Gilmoreum 08/01/2024 1 [facility] (MEDICARE REPLACEMENT/A DVANTAGE - PPO) [id number] Ros Maru Gilmoreum [id number] Ros Gilmoreum Notes Date Note Type Note Provider Name and Address Organization Details Recorded Time 08/21/2023 text/html 77-year-old female is 3+ weeks status post left-sided total hip arthroplasty. She is presenting early for a wound check. She states that she feels that the wound is healing nicely. She is not feeling ill nor she having any problems. She has plans to get started on physical therapy going forward. ANITRA ALEXANDRE PA-C [address] [facility] [address], [place], [address], [place] [facility] 08/21/2023 13:42:54 OBGyn Episode No OBEpisode recorded.
[2024-10-04 17:56] LABS: Influenza A PCR NEGATIVE (Negative); Influenza B PCR NEGATIVE (Negative); Resp Syncy Virus RNA Qual PCR NEGATIVE (Negative); SARS COV2 PCR INHOUSE NEGATIVE (Negative)
== END 2024-10-04 15:14 | disposition home or self-care (01) ==
LOC: HO.HMGCX 15:13
PROVIDERS: Visit Provider Physician Assistant
DX: R09.89 Other specified symptoms and signs involving the circulatory and respiratory systems (principal); R05.9 Cough, unspecified; J44.1 Chronic obstructive pulmonary disease with (acute) exacerbation
CPT/HCPCS: 0241U; 71046; 99202

== ENCOUNTER → 2024-10-04 15:16 | Outpatient (BNV) | payer MEDICARE, SELFPAY | PROVIDERS: Visit Provider Radiology Diagnostic Radiology | DX: R05.9 Cough, unspecified (principal) | CPT/HCPCS: 71046 ==